=== PATIENT | male | born 1945 | race Caucasian/White ===

== ENCOUNTER 2017-08-03 11:30 | Emergency (ER) | payer MEDICARE ==
[~2017-08-03] VITALS: Ht 167.6 cm; Wt 94.3 kg
[~2017-08-03 11:30] MED LIST: ASPIRIN LOW DOS81 MG PO; DAILY VITAMIN1 EAC3 PO; FENOFIBRATE PO; LEVEMIR 10100 UNIT/1; LEVEMIR 10100 UNIT/1 SQ; LIPITOR20 MG; METFORMIN HCL500 M1; MULTIVITAMIN PO; NIACIN1000 MG PO; NOVOLIN N100 UNIT/1 SQ; NOVOLOG100 UNIT/3 SQ; PROTONIX40 M2 PO; VITAMIN B6100 MG PO; Z VITAMIN E PO; Z.0.CRESTOR20 MG PO; Z.0.GEMFIBROZIL600 M PO; Z.0.GLIPIZIDE10 MG PO; Z.0.GLIPIZIDE5 MG PO; Z.0.METOPROLOL SUCC2 PO; Z.0.NIASPAN500 MG PO; Z.0.RAMIPRIL10 MG PO; Z.0.SUCRALFATE1 GM PO; Z.0.VITAMIN B12-FO1 PO; Z.0.VITAMIN C500 M1 PO; Z.1.METFORMIN HCL100 PO; [UNRECOGNIZED DRUG - OTHER] PO; [UNRECOGNIZED DRUG - OTHER] PO
--- NOTE | 2017-08-03 12:30 | Diagnostic Imaging Report ---
PROCEDURE: A single AP view of the chest. COMPARISON: None available. INDICATIONS: DIZZINESS FINDINGS: Lines/tubes: None. Lungs: The lungs are well inflated and clear. There is no evidence of pneumonia or pulmonary edema. Pleura: There is no pleural effusion or pneumothorax. Heart and mediastinum: The heart and the mediastinum are unremarkable. Bones: No acute bony abnormality. IMPRESSION: 1. No acute cardiopulmonary disease. Dictated by: Jhon Muir M.D. on 08/03/2017 at 12:33 Electronically approved by: Jhon Muir M.D. on 08/03/2017 at 12:33
[2017-08-03 12:53] LABS: BASOPHILS % 0.3 % (0.0-1.0); EOSINOPHILS # (AUTO) 0.1 (0.0-0.4); HEMATOCRIT 38.3 % (38.2-49.6); HEMOGLOBIN 12.6 g/dL (14.0-18.0); LYMPHOCYTES # (AUTO) 1.3 (1.0-3.2); LYMPHOCYTES % 13.2 % (18.0-39.1); MEAN CORPUSCULAR HEMOGLOBIN 29.8 pg (28-32); MEAN CORPUSCULAR HGB CONC 32.9 g/dL (31-35); MEAN CORPUSCULAR VOLUME 90.5 fL (81-99); MONOCYTES # (AUTO) 0.6 (0.2-0.8); MONOCYTES % 6.1 % (4.4-11.3); NEUTROPHILS # (AUTO) 7.6 (2.1-6.9); NEUTROPHILS % 79.1 % (38.7-80.0); PLATELET COUNT 304 x10e3/uL (140-360); RED BLOOD COUNT 4.23 x10e6/uL (4.3-5.7); RED CELL DISTRIBUTION WIDTH 13.2 % (11.7-14.4)
[2017-08-03 13:04] LABS: INR 1.04; PROTHROMBIN TIME 12.8 seconds (11.9-14.5)
[2017-08-03 13:05] LABS: PARTIAL THROMBOPLASTIN TIME 28.4 seconds (23.8-35.5)
--- NOTE | 2017-08-03 13:06 | Diagnostic Imaging Report ---
History: Dizziness, unsteady gait. Comparison studies:None Technique: Axial images were obtained from the brain and cervical spine. Coronal and sagittal images reconstructed from the axial data. Intravenous contrast: None Findings: Head CT: Scalp/skull: No abnormalities. No fractures, blastic or lytic lesions. Brain sulci: Appropriate for age. Ventricles: Normal in size and configuration. No hydrocephalus. Extra-axial spaces: No masses. No fluid collections. Parenchyma: No abnormal densities. No masses, hemorrhage, acute or chronic cortical vascular insults. Sellar/suprasellar region: No abnormalities. Craniocervical junction: Patent foramen magnum. No Chiari one malformation. Atherosclerotic calcifications of the carotid siphons. Cervical spine CT: Fractures: None. Soft tissues: No gross abnormalities. Atlantoaxial articulation: Degenerative changes without acute abnormality. Alignment: Normal lordosis. No scoliosis. Cervicomedullary junction: No abnormalities. Patent foramen magnum. Vertebrae: No infection or neoplasm. Degenerative changes: Facet and uncinate process hypertrophy results in moderate foraminal narrowing at C3-4 left and C4-5 bilaterally. Grossly patent canal. Incidental findings: None. Impression: Head CT: 1. No acute intracranial abnormality. 2. Cervical spine CT: 1. No acute abnormality.. 2. Cannot exclude ligament, spinal cord and or vascular abnormalities on the basis of this examination. Signed by: DR Juve Lindsey M.D. on 08/03/2017 1:02 PM
[2017-08-03 13:16] LABS: ALANINE AMINOTRANSFERASE 19 IU/L (0-55); ALBUMIN 3.6 g/dL (3.5-5.0); ALBUMIN/GLOBULIN RATIO 1.2 (0.8-2.0); ALKALINE PHOSPHATASE 79 IU/L (40-150); ANION GAP 11.9 mmol/L (8-16); BLOOD UREA NITROGEN 19 mg/dL (7-26); BUN/CREATININE RATIO 20 (6-25); CALCIUM 9.6 mg/dL (8.4-10.2); CARBON DIOXIDE 27 mmol/L (22-29); CHLORIDE 107 mmol/L (98-107); CREATINE KINASE 76 IU/L (30-200); CREATININE, SERUM 0.95 mg/dL (0.72-1.25); EST GLOMERULAR FILTRATION RATE > 60 ML/MIN (60-); GLUCOSE 119 mg/dL (74-118); MAGNESIUM 1.8 MG/DL (1.3-2.1); POTASSIUM 4.9 mmol/L (3.5-5.1); SODIUM 141 mmol/L (136-145)
[2017-08-03] MEDS ORDERED: MECLIZINE HCL 12.5 MG TAB PO ONE (14:45)
[2017-08-03 15:29] VITALS: BP 159/76
== END 2017-08-03 15:31 | disposition home or self-care (01) ==
LOC: ER 11:30
DX: H81.12 Benign paroxysmal vertigo, left ear (principal); I10 Essential (primary) hypertension; E11.9 Type 2 diabetes mellitus without complications; Z79.4 Long term (current) use of insulin; I25.2 Old myocardial infarction; Z98.84 Bariatric surgery status; Z95.5 Presence of coronary angioplasty implant and graft; Z87.891 Personal history of nicotine dependence; Z88.2 Allergy status to sulfonamides; Z79.82 Long term (current) use of aspirin
CPT/HCPCS: 36415; 70450; 71045; 72125; 80053; 82550; 82553; 83735; 83880; 84484; 85025; 85610; 85730; 93005; 99284